=== PATIENT | male | born 1965 | race Two or more races ===

== ENCOUNTER 2024-09-27 21:47 | Emergency (ER) | payer OTHER ==
[~2024-09-27] VITALS: Ht 177.8 cm; Wt 103.4 kg
[2024-09-27] MEDS ORDERED: JARDIANCE10 MG (22:21)
[2024-09-27] MEDS ORDERED: TOPROL XL25 M1 (22:21)
[2024-09-27] MEDS ORDERED: METFORMIN HCL500 M3 (22:22)
[2024-09-27] MEDS ORDERED: CARDIZEM30 MG (22:22)
[2024-09-27] MEDS ORDERED: HYDRODIURIL12.5 MG (22:22)
[2024-09-28] MEDS ORDERED: 0.9 % SODIUM CHLORIDE 500 ML IV STA (02:23)
[2024-09-28] MEDS ORDERED: INSULIN REGULAR, HUMAN 1,000 UNIT/10 ML UNITS SUBCUTANEO STA (02:24)
[2024-09-28] MEDS ORDERED: INSULIN REGULAR, HUMAN 1,000 UNIT/10 ML UNITS IV STA (02:24)
== END 2024-09-28 05:31 | disposition home or self-care (01) ==
LOC: ER 21:47
DX: E11.65 Type 2 diabetes mellitus with hyperglycemia (principal); Z79.84 Long term (current) use of oral hypoglycemic drugs; I10 Essential (primary) hypertension

== ENCOUNTER 2024-10-03 10:57 | Emergency (ER) | payer OTHER ==
[~2024-10-03] VITALS: Ht 177.8 cm; Wt 95.3 kg
[~2024-10-03 10:57] MED LIST: CARDIZEM30 MG; HYDRODIURIL12.5 MG; JARDIANCE10 MG; METFORMIN HCL500 M3; TOPROL XL25 M1
[2024-10-03] MEDS ORDERED: 0.9 % SODIUM CHLORIDE 500 ML IV STA (12:02)
[2024-10-03 12:31] LABS: BASO % 0.5 % (0.1-1.2); EOS # 0.06 (0.04-0.54); EOS % 0.5 % (0.7-7.0); LYMPH # 1.82 (1.18-3.74); LYMPH % 15.9 % (19.3-53.1); MEAN PLATELET VOLUME 10.20 fl (9.4-12.4); MONO # 0.62 (0.24-0.82); MONO % 5.4 % (4.7-12.5); NEUT # 8.88 (1.56-6.13); NEUT % 77.4 % (34.0-71.1); RED CELL DISTRIBUTION WIDTH 13.7 % (11.6-14.4)
[2024-10-03 13:10] LABS: BUN CREA RATIO 20.0 (7.0-25.0); CREATININE SERUM 1.63 mg/dL (0.70-1.30); GFR 43.82; OSMOLALITY SERUM 284.0 MOSM/KG (275-295)
[2024-10-03 13:15] LABS: GLUCOSE FASTING 281.0 mg/dL (65-100)
[2024-10-03] MEDS ORDERED: INSULIN REGULAR, HUMAN 1,000 UNIT/10 ML UNITS SUBCUTANEO STA (16:44)
[2024-10-03] MEDS ORDERED: ENALAPRILAT DIHYDRATE 1.25 MG/ML VIAL IV STA (17:24)
== END 2024-10-03 21:01 | disposition home or self-care (01) ==
LOC: ER 10:58
PROVIDERS: General Practice
DX: E11.65 Type 2 diabetes mellitus with hyperglycemia (principal); E11.29 Type 2 diabetes mellitus with other diabetic kidney complication; Z79.84 Long term (current) use of oral hypoglycemic drugs; I10 Essential (primary) hypertension; I50.9 Heart failure, unspecified; Z91.018 Allergy to other foods